=== PATIENT | male | born 1980 | race Caucasian/White ===

== ENCOUNTER 2017-01-25 21:28 | Emergency (ER) | payer OTHER ==
[~2017-01-25 21:28] MED LIST: AMPICILLIN500 MG PO; COL250 PO; COLACE100 MG PO; MOTRIN800 MG PO; NOR10 PO; NORCO1 TA2 PO; ZESTRIL20 MG PO
[2017-01-25 23:25] VITALS: BP 135/102
== END 2017-01-25 23:25 | disposition home or self-care (01) ==
LOC: ED 21:28
DX: R10.12 Left upper quadrant pain (principal); I10 Essential (primary) hypertension; Z90.49 Acquired absence of other specified parts of digestive tract
CPT/HCPCS: J1885

== ENCOUNTER 2017-07-28 20:44 | Emergency (ER) | payer OTHER ==
[2017-07-28 23:14] VITALS: BP 140/80
== END 2017-07-28 23:14 | disposition home or self-care (01) ==
LOC: ED 20:44
DX: B35.6 Tinea cruris (principal); I10 Essential (primary) hypertension; E66.01 Morbid (severe) obesity due to excess calories

== ENCOUNTER 2018-05-22 19:03 | Emergency (ER) | payer OTHER ==
[~2018-05-22] VITALS: Ht 182.9 cm; Wt 161.5 kg
[2018-05-22 19:51] VITALS: Ht 182.9 cm; Wt 161.5 kg
[2018-05-22 21:29] LABS: microscopic required? NO
[2018-05-22 21:35] LABS: UA SPECIFIC GRAVITY 1.025 (1.005-1.035); urine erythrocyte NEGATIVE (NEGATIVE)
[2018-05-22 21:44] LABS: BASOPHIL % 0.8 % (0-2); PLATELET COUNT 329 x10^3mcL (130-400)
[2018-05-22 21:45] LABS: RED CELL DISTRIBUTION WIDTH 15.2 % (11.5-14.5)
[2018-05-22 21:49] LABS: CALCIUM 9.4 mg/dL (8.5-10.1); CARBON DIOXIDE 31.7 mmol/L (21-32); CHLORIDE SERUM 103 mmol/L (98-107); GFR1 > 60 mL/min; GLUCOSE SERUM 80 mg/dL (74-106); POTASSIUM SERUM 3.8 mmol/L (3.5-5.1); SODIUM SERUM 138 mmol/L (136-145)
[2018-05-22 21:53] LABS: ALBUMIN 3.4 g/dL (3.4-5.0); ALKALINE PHOSPHATASE 74 U/L (46-116); ALT/SGPT 45 U/L (16-63); AMYLASE 77 U/L (25-115); AST/SGOT 30 U/L (15-37); BILIRUBIN TOTAL 0.36 mg/dL (0.20-1.00); LIPASE 304 IU/L (73-393); TOTAL PROTEIN, SERUM 7.6 g/dL (6.4-8.2)
[2018-05-23 00:29] VITALS: BP 149/98
== END 2018-05-23 00:29 | disposition home or self-care (01) ==
LOC: ED 19:03
PROVIDERS: Specialist
DX: N28.1 Cyst of kidney, acquired (principal); I10 Essential (primary) hypertension; Z90.49 Acquired absence of other specified parts of digestive tract
CPT/HCPCS: 83880; J1885; J2405; J3010; Q9967

== ENCOUNTER 2018-06-03 15:32 | Emergency (ER) | payer OTHER ==
[~2018-06-03] VITALS: Ht 182.9 cm; Wt 158.8 kg
[2018-06-03 15:39] VITALS: Ht 182.9 cm; Wt 158.8 kg
[2018-06-03 16:17] LABS: UA SPECIFIC GRAVITY 1.025 (1.005-1.035); microscopic required? YES; urine erythrocyte 1+ (NEGATIVE)
[2018-06-03 17:03] VITALS: BP 143/92
== END 2018-06-03 17:03 | disposition home or self-care (01) ==
LOC: ED 15:32
PROVIDERS: Emergency Medicine
DX: N39.0 Urinary tract infection, site not specified (principal); I10 Essential (primary) hypertension
CPT/HCPCS: 87491; 87591

== ENCOUNTER 2018-08-21 07:35 | Emergency (ER) | payer OTHER ==
[~2018-08-21] VITALS: Ht 182.9 cm; Wt 142.4 kg
[2018-08-21 07:40] VITALS: Ht 182.9 cm; Wt 142.4 kg
[2018-08-21 08:27] VITALS: BP 150/95
== END 2018-08-21 08:27 | disposition home or self-care (01) ==
LOC: ED 07:35
DX: J03.90 Acute tonsillitis, unspecified (principal); I10 Essential (primary) hypertension
CPT/HCPCS: 36415; J2543; J7030

== ENCOUNTER 2018-10-18 11:25 | Emergency (ER) | payer OTHER ==
[~2018-10-18] VITALS: Ht 185.4 cm; Wt 147.0 kg
[2018-10-18 11:46] VITALS: Ht 185.4 cm; Wt 147.0 kg
[2018-10-18 15:27] VITALS: BP 159/123
== END 2018-10-18 15:27 | disposition home or self-care (01) ==
LOC: ED 11:25
DX: L03.031 Cellulitis of right toe (principal); I10 Essential (primary) hypertension
CPT/HCPCS: J2001

== ENCOUNTER 2018-12-05 21:43 | Emergency (ER) | payer OTHER ==
[~2018-12-05] VITALS: Ht 185.4 cm; Wt 154.2 kg
[2018-12-05 22:53] VITALS: Ht 185.4 cm; Wt 154.2 kg
[2018-12-06 00:07] VITALS: BP 145/93
== END 2018-12-06 00:07 | disposition home or self-care (01) ==
LOC: ED 21:43
DX: H66.91 Otitis media, unspecified, right ear (principal); I10 Essential (primary) hypertension

== ENCOUNTER 2019-05-04 13:01 | Emergency (ER) | payer OTHER ==
[~2019-05-04] VITALS: Ht 185.4 cm; Wt 158.3 kg
[2019-05-04 13:09] VITALS: BP 194/120; Ht 185.4 cm; Wt 158.3 kg
== END 2019-05-04 13:49 | disposition home or self-care (01) ==
LOC: ED 13:01
DX: L21.9 Seborrheic dermatitis, unspecified (principal); I10 Essential (primary) hypertension

== ENCOUNTER 2019-11-13 09:10 | Emergency (ER) | payer OTHER ==
[~2019-11-13] VITALS: Ht 182.9 cm; Wt 158.8 kg
[2019-11-13 09:16] VITALS: Ht 182.9 cm; Wt 158.8 kg
[2019-11-13 10:36] LABS: CARBON DIOXIDE 30 mmol/L (21-32); CHLORIDE SERUM 101 mmol/L (98-107); POTASSIUM SERUM 3.6 mmol/L (3.5-5.1); SODIUM SERUM 138 mmol/L (136-145)
[2019-11-13 10:37] LABS: ALBUMIN 3.9 g/dL (3.4-5.0); ALKALINE PHOSPHATASE 84 U/L (46-116); ALT/SGPT 49 U/L (16-63); AST/SGOT 34 U/L (15-37); BILIRUBIN TOTAL 0.7 mg/dL (0.20-1.00); CALCIUM 9.4 mg/dL (8.5-10.1); GFR1 > 60 mL/min; GLUCOSE SERUM 105 mg/dL (74-106); TOTAL PROTEIN, SERUM 8.7 g/dL (6.4-8.2)
[2019-11-13 10:38] LABS: CHOLESTEROL 184 mg/dL (<200); HDL CHOLESTEROL 47 mg/dL (40-60)
[2019-11-13 10:48] LABS: MAGNESIUM 2.2 mg/dL (1.8-2.4)
[2019-11-13 11:42] LABS: BASOPHIL % 0.4 % (0-2); PLATELET COUNT 289 x10^3mcL (130-400); RED CELL DISTRIBUTION WIDTH 14.7 % (11.5-14.5)
[2019-11-13 13:22] VITALS: BP 137/98
== END 2019-11-13 14:39 | disposition home or self-care (01) ==
LOC: ED 09:10
PROVIDERS: Emergency Medicine
DX: R42 Dizziness and giddiness (principal); R11.10 Vomiting, unspecified; F17.200 Nicotine dependence, unspecified, uncomplicated; I10 Essential (primary) hypertension; Z90.89 Acquired absence of other organs; Z90.49 Acquired absence of other specified parts of digestive tract
CPT/HCPCS: 99406; J1200; J2405; J7030; J8597; Q0092

== ENCOUNTER 2019-12-18 23:47 | Emergency (ER) | payer OTHER ==
[~2019-12-18] VITALS: Ht 185.4 cm; Wt 165.6 kg
[2019-12-18 23:53] VITALS: Ht 185.4 cm; Wt 165.6 kg
[2019-12-19 01:03] VITALS: BP 144/99
== END 2019-12-19 01:03 | disposition home or self-care (01) ==
LOC: ED 23:47
DX: J11.1 Influenza due to unidentified influenza virus with other respiratory manifestations (principal); K52.9 Noninfective gastroenteritis and colitis, unspecified; I10 Essential (primary) hypertension; Z90.89 Acquired absence of other organs; Z90.49 Acquired absence of other specified parts of digestive tract
CPT/HCPCS: J1885

== ENCOUNTER 2020-01-08 22:37 | Emergency (ER) | payer OTHER ==
[~2020-01-08] VITALS: Ht 185.4 cm; Wt 168.1 kg
[2020-01-08 22:42] VITALS: BP 138/89; Ht 185.4 cm; Wt 168.1 kg
== END 2020-01-08 23:50 | disposition home or self-care (01) ==
LOC: ED 22:37
DX: T21.12XA Burn of first degree of abdominal wall, initial encounter (principal)
CPT/HCPCS: 90715

== ENCOUNTER 2020-02-13 12:11 | Emergency (ER) | payer OTHER, SELFPAY ==
[~2020-02-13] VITALS: Ht 185.4 cm; Wt 163.3 kg
[2020-02-13 12:16] VITALS: Ht 185.4 cm; Wt 163.3 kg
[2020-02-13 12:44] LABS: BASOPHIL % 0.7 % (0-2); PLATELET COUNT 308 x10^3mcL (130-400)
[2020-02-13 12:51] LABS: RED CELL DISTRIBUTION WIDTH 14.8 % (11.5-14.5)
[2020-02-13 12:56] LABS: CALCIUM 9.4 mg/dL (8.5-10.1); CARBON DIOXIDE 30.8 mmol/L (21-32); CHLORIDE SERUM 104 mmol/L (98-107); CREATININE SERUM 0.8 mg/dL (0.7-1.3); GFR1 > 60 mL/min; GLUCOSE SERUM 115 mg/dL (74-106); POTASSIUM SERUM 3.9 mmol/L (3.5-5.1); SODIUM SERUM 141 mmol/L (136-145)
[2020-02-13 13:01] LABS: ALBUMIN 3.4 g/dL (3.4-5.0); ALKALINE PHOSPHATASE 76 U/L (46-116); ALT/SGPT 36 U/L (16-63); AST/SGOT 27 U/L (15-37); BILIRUBIN TOTAL 0.33 mg/dL (0.20-1.00); TOTAL PROTEIN, SERUM 7.8 g/dL (6.4-8.2)
[2020-02-13 14:06] VITALS: BP 139/95
== END 2020-02-13 14:06 | disposition home or self-care (01) ==
LOC: ED 12:11
PROVIDERS: Emergency Medicine
DX: J11.1 Influenza due to unidentified influenza virus with other respiratory manifestations (principal); R09.89 Other specified symptoms and signs involving the circulatory and respiratory systems; I10 Essential (primary) hypertension; Z90.49 Acquired absence of other specified parts of digestive tract; Z90.89 Acquired absence of other organs; Z98.890 Other specified postprocedural states
CPT/HCPCS: 36415; 87804; J3535

== ENCOUNTER 2020-02-25 19:37 | Emergency (ER) | payer OTHER, SELFPAY ==
[~2020-02-25] VITALS: Ht 185.4 cm; Wt 166.0 kg
[2020-02-25 19:45] VITALS: Ht 185.4 cm; Wt 166.0 kg
[2020-02-25 23:54] VITALS: BP 134/96
== END 2020-02-25 23:54 | disposition home or self-care (01) ==
LOC: ED 19:37
DX: J02.9 Acute pharyngitis, unspecified (principal); I10 Essential (primary) hypertension; Z20.828 Contact with and (suspected) exposure to other viral communicable diseases; Z90.89 Acquired absence of other organs; Z90.49 Acquired absence of other specified parts of digestive tract
CPT/HCPCS: J1885

== ENCOUNTER 2020-02-27 02:15 | Emergency (ER) | payer OTHER, SELFPAY ==
[~2020-02-27] VITALS: Ht 185.4 cm; Wt 163.3 kg
[2020-02-27 02:51] VITALS: Ht 185.4 cm; Wt 163.3 kg
[2020-02-27 05:25] VITALS: BP 163/97
== END 2020-02-27 05:25 | disposition home or self-care (01) ==
LOC: ED 02:15
DX: J02.9 Acute pharyngitis, unspecified (principal); I10 Essential (primary) hypertension
CPT/HCPCS: J0561; J1885

== ENCOUNTER 2020-11-10 15:14 | Emergency (ER) | payer OTHER ==
[~2020-11-10] VITALS: Ht 185.4 cm; Wt 186.0 kg
[2020-11-10 15:20] VITALS: Ht 185.4 cm; Wt 186.0 kg
[2020-11-10 19:10] VITALS: BP 150/103
== END 2020-11-10 19:10 | disposition home or self-care (01) ==
LOC: ED 15:14
DX: L02.416 Cutaneous abscess of left lower limb (principal); I10 Essential (primary) hypertension; E66.9 Obesity, unspecified
CPT/HCPCS: J1885; J2001